=== PATIENT | male | born 2000 | race Caucasian/White ===

== ENCOUNTER 2021-02-13 11:22 | Emergency (ER) | payer OTHER ==
[~2021-02-13] VITALS: Ht 165.1 cm; Wt 61.7 kg
[2021-02-13 11:26] VITALS: BP 126/86
--- NOTE | 2021-02-13 11:29 | NUR ---
PT TO WAIT IN LOBBY.
--- NOTE | 2021-02-13 13:27 | NUR ---
PT TAKEN TO EFRAÍN Castrejon
--- NOTE | 2021-02-13 13:32 | NUR ---
DR. TANNER WITH PT IN A FOR FURTHER EVALUATION.
--- NOTE | 2021-02-13 13:50 | NUR ---
NO NURSING INTERVENTIONS NEEDED, NO COMPLETE ASSESSMENT DONE.
[2021-02-13 13:52] VITALS: BP 121/81
--- NOTE | 2021-02-13 13:53 | NUR ---
Patient discharged with v/s stable. Written and verbal after care instructions given and explained. Patient verbalized understanding. Ambulatory with steady gait. All questions addressed prior to discharge. Advised to follow up with PMD.
== END 2021-02-13 13:53 | disposition home or self-care (01) ==
LOC: MED 11:22
DX: F41.0 Panic disorder [episodic paroxysmal anxiety] (principal)
CPT/HCPCS: 99281

== ENCOUNTER 2022-11-04 18:32 | Emergency (ER) | payer OTHER ==
[~2022-11-04] VITALS: Ht 165.1 cm; Wt 59.9 kg
[2022-11-04 18:42] VITALS: BP 137/72; PULSE 82; RESP 18; TEMP 98.1; O2SAT 98
[2022-11-04 19:17] LABS: BASOPHILS % (AUTO) 0.5 % (0.0-2.0); EOSINOPHILS # (AUTO) 0.1 K/uL (0-0.4); EOSINOPHILS % (AUTO) 1.2 % (0.0-4.0); HEMATOCRIT 43.7 % (36-52); LYMPHOCYTES % (AUTO) 32.8 % (20.5-51.1); MEAN CORPUSCULAR HEMOGLOBIN 30 pg (27-31); MEAN CORPUSCULAR HGB CONC 34 g/dL (33-37); MEAN CORPUSCULAR VOLUME 88.4 fL (80-94); MONOCYTES # (AUTO) 0.7 K/uL (0.8-1.0); MONOCYTES % (AUTO) 11.4 % (1.7-9.3); NEUTROPHILS # (AUTO) 3.3 K/uL (1.8-7.7); NEUTROPHILS % (AUTO) 54.1 % (42.2-75.2); PLATELET COUNT (AUTO) 173 K/uL (140-450); RED BLOOD CELL COUNT(AUTO) 4.94 MIL/uL (4.20-6.10); RED CELL DISTRIBUTION WIDTH 12.7 % (11.6-13.7); WHITE BLOOD COUNT (AUTO) 6.1 K/uL (4.8-10.8)
[2022-11-04 20:14] LABS: ALBUMIN 4.3 g/dL (3.4-5.0); ANION GAP 13.6 (8-16); CARBON DIOXIDE 27.1 mmol/L (21-32); CREATININE 0.9 mg/dL (0.6-1.3); POTASSIUM 3.7 mmol/L (3.5-5.1); TOTAL BILIRUBIN 0.5 mg/dL (0.0-1.0)
[2022-11-05 00:07] VITALS: O2SAT 98
[2022-11-05 00:57] VITALS: BP 120/75; PULSE 60; RESP 16
[2022-11-05 01:05] VITALS: O2SAT 98
[2022-11-05] MEDS ORDERED: BEN10 PO (01:52)
== END 2022-11-05 01:57 | disposition home or self-care (01) ==
LOC: MED 18:32
DX: R10.31 Right lower quadrant pain (principal); R11.0 Nausea; Z79.899 Other long term (current) drug therapy
CPT/HCPCS: 36415; 74177; 80053; 81002; 83690; 85025; 99285; Q9967; 99283